=== PATIENT | male | born 1965 | race Caucasian/White ===

== ENCOUNTER 2021-04-18 00:13 | Emergency (ER) | payer MEDICARE, OTHER ==
[2021-04-18 00:37] LABS: HEMOGLOBIN 16.8 gm/dl (14.0-17.5); RED BLOOD COUNT 5.26 M/UL (4.20-5.50); WHITE BLOOD COUNT 15.8 K/UL (4.5-11.0)
[2021-04-18 01:10] LABS: BUN/CREATININE RATIO 20 (0-10)
== END 2021-04-18 20:50 | disposition short-term general hospital (02) ==
LOC: ER1 00:13
PROVIDERS: Emergency Medicine; Student in an Organized Health Care Education/Training Program
DX: G93.9 Disorder of brain, unspecified (principal); G93.6 Cerebral edema; F17.200 Nicotine dependence, unspecified, uncomplicated; Z20.822 Contact with and (suspected) exposure to COVID-19
CPT/HCPCS: 70450; 71045; 80053; 80307; 81001; 82550; 82553; 83874; 84439; 84443; 84484; 85025; 93005; 96374; 96375; 96376; 99285; J1100; J2270; J2405; U0002

== ENCOUNTER 2021-04-23 22:43 | Emergency (ER) | payer MEDICARE, OTHER ==
[2021-04-24 00:22] LABS: HEMOGLOBIN 16.8 gm/dl (14.0-17.5); RED BLOOD COUNT 5.27 M/UL (4.20-5.50)
[2021-04-24 00:44] LABS: BUN/CREATININE RATIO 14 (0-10)
== END 2021-04-24 17:55 | disposition short-term general hospital (02) ==
LOC: ER1 22:43
PROVIDERS: Emergency Medicine
DX: I63.9 Cerebral infarction, unspecified (principal); I10 Essential (primary) hypertension; F17.200 Nicotine dependence, unspecified, uncomplicated; Z20.822 Contact with and (suspected) exposure to COVID-19
CPT/HCPCS: 70450; 80053; 85025; 99285; U0002